=== PATIENT | female | born 1995 | race Caucasian/White ===

== ENCOUNTER 2024-12-14 14:57 | Outpatient (CLI) | payer OTHER, SELFPAY ==
--- NOTE | 2024-12-14 15:00 | CRLHL7_ITS ---
For Patients: As a result of the Cures Act, medical imaging exams and procedure reports are released immediately into your electronic medical record. You may view this report before your referring provider. If you have questions, please contact your health care provider. OB ULTRASOUND INDICATION: Dating and viability. TECHNIQUE: Real time grayscale imaging of the fetus was performed. Transvaginal imaging performed to better visualize the endometrium and ovaries. LMP: 10/22/2024. RAMON by LMP: 07/29/2025. GA: 7 w, 4 d. Previous US: No. CRL: 1.2 cm. 7 w 3 d. RAMON: 07/30/2025. FHR: 149 BPM. Gestational sac: 2.9 cm. Appears within normal limits. Yolk sac: 2.9 mm. Appears within normal limits. Right ovary: 2.8 x 1.3 x 1.9 cm. Left ovary: 3.0 x 1.7 x 2.4 cm. CL. COMMENT: Retroverted uterus. IMPRESSION: 1. Sonographic gestational age 7 weeks 3 days and sonographic due date 07/30/2025. 2. Curvilinear subchorionic hemorrhage anterior to the gestational sac measuring 4.2 x 0.4 x 0.5 cm. Abdoul Infante M.D. Diagnostic Radiologist [email or web address] SALAS/[email or web address]/Dictated by: Abdoul Infante MD @ 12/15/2024 9:43:00 AM (Electronically Signed)
== END 2024-12-14 14:58 | disposition home or self-care (01) ==
LOC: US 14:57
PROVIDERS: PCP Physician Assistant; Visit Provider Physician Assistant
DX: Z34.91 Encounter for supervision of normal pregnancy, unspecified, first trimester (principal); O20.9 Hemorrhage in early pregnancy, unspecified; Z3A.01 Less than 8 weeks gestation of pregnancy
CPT/HCPCS: 76817

== ENCOUNTER 2024-12-14 15:55 | Outpatient (CLI) | payer OTHER, SELFPAY ==
[2024-12-14 22:37] LABS: Chlamydia DNA Amplified* NOT DETECTED (No Detected); GC DNA Amplified* NOT DETECTED (No Detected)
== END 2024-12-14 15:56 | disposition home or self-care (01) ==
PROVIDERS: PCP Physician Assistant; Visit Provider Physician Assistant
DX: Z34.81 Encounter for supervision of other normal pregnancy, first trimester (principal); Z67.40 Type O blood, Rh positive
CPT/HCPCS: 83020; 83021; 85660; 86592; 86703; 86704; 86706; 86762; 86787; 86803; 86850; 86900; 86901; 87086; 87340; 87491; 87591

== ENCOUNTER 2025-03-19 07:59 | Outpatient (CLI) | payer OTHER, SELFPAY ==
--- NOTE | 2025-03-19 08:15 | CRLHL7_ITS ---
For Patients: As a result of the 21st Century Cures Act, medical imaging exams and procedure reports are released immediately into your electronic medical record. You may view this report before your referring provider. If you have questions, please contact your health care provider. RAMON by LMP: 07/29/2025. GA: 21w, 1d. Single. INDICATION: Basic anatomy survey. CERVIX: 3.2 TA. POSITIONING: Vertex. AMNIOTIC FLUID: 3.5 cm SDP. PLACENTA: Technique: Transabdominal. PLACENTA POSITION: Posterior. Placenta tip to internal os: 6.2 cm. Placental insertion: Central. UMBILICAL CORD: 3 vessel. DOPPLER: heart rate: 139 bpm. BIOMETRY: BPD: 4.7 cm. 20w, 2d. HC: 18.7 cm. 21w, 0d. AC: 15.3 cm. 20w, 3d. FL: 3.5 cm. 21w, 1d. FL/AC ratio: 23.05 percent. HC/AC ratio: 1.22. EFW: 376 g. Weight: 13 oz. age by this US: 20w, 5d. RAMON by this US: 08/01/2025. Percentile by RAMON: 26th percentile. SURVEY: Observed Structures Cerebellum: Yes. 2.1 cm; 21w 0d. Cisterna Magna: Yes. 6.2 mm. Nuchal Fold: Yes. 5.2 mm. Lateral Ventricle: Yes. 6.5 mm. CSP: Yes. Midline Falx: Yes. Choroid Plexus: Yes. Spine: Yes. Stomach: Yes. Abd Cord Insertion: Yes. Urinary Bladder: Yes. Kidneys: Yes. Diaphragm: Yes. Nose/lips: Yes. Orbital view: Yes. Profile: Yes. Upper Extremities: Yes. Lower Extremities: Yes. Hands: Yes. Feet: Yes. Four-Chamber Heart: Yes. LVOT: Yes. RVOT: Yes. 3VV: Yes. 3VTV: Yes. EFW: 376 g. Weight: 13 oz. age by this US: 20w, 5d. RAMON by this US: 08/01/2025. Percentile by RAMON: 26th percentile. IMPRESSION: 1. Concordance of clinical and sonographic dating. 2. Normal anatomic survey. 3. Eccentric placental cord insertion located 2.7 cm from the placental edge. Abdoul Infante M.D. Diagnostic Radiologist [email or web address] SALAS/[email or web address] / bM/Dictated by: Abdoul Infante MD @ 03/19/2025 10:16:00 AM (Electronically Signed)
== END 2025-03-19 08:00 | disposition home or self-care (01) ==
LOC: US 08:00
PROVIDERS: PCP Physician Assistant; Visit Provider Advanced Practice Midwife
DX: Z34.92 Encounter for supervision of normal pregnancy, unspecified, second trimester (principal); Z3A.21 21 weeks gestation of pregnancy
CPT/HCPCS: 76805

== ENCOUNTER 2025-05-14 09:02 | Outpatient (CLI) | payer OTHER, SELFPAY | END 2025-05-14 09:03 | disposition home or self-care (01) | PROVIDERS: PCP Physician Assistant; Visit Provider Midwife | DX: L29.9 Pruritus, unspecified (principal); O99.713 Diseases of the skin and subcutaneous tissue complicating pregnancy, third trimester | CPT/HCPCS: 82239; 82248; 84450; 84460; 84550; 86592 ==

== ENCOUNTER 2025-07-02 16:12 | Outpatient (CLI) | payer OTHER, SELFPAY ==
[2025-07-03 12:13] LABS: Strep B DNA Probe POSITIVE (Negative)
[2025-07-03 12:47] LABS: Strep B Susceptibility Needed? No
== END 2025-07-02 16:13 | disposition home or self-care (01) ==
LOC: NFLDREF 16:12
PROVIDERS: PCP Physician Assistant; Visit Provider Advanced Practice Midwife
DX: Z34.83 Encounter for supervision of other normal pregnancy, third trimester (principal)
CPT/HCPCS: 87081; 87653